=== PATIENT | male | born 1945 | race Caucasian/White ===

== ENCOUNTER 2017-01-14 06:49 | Day surgery (SDC) | payer MEDICARE ==
--- NOTE | ~2017-01-14 | EGD ---
EGD REPORT [facility] [address] [place] [address] NAME: VENTURA MARR : [birth year] STATUS : REG [facility] PAT#: [id number] AGE: 71 ADM/REG DATE : 01/14/17 MR#: [id number] REPORT SERV DATE: 01/14/17 DICTATED BY: CARTER SILVA DATE: 01/14/17 REPORT STATUS : Draft TRANSCRIBED BY: [employer] DATE: 01/14/17 [facility] Center Patient Name: Ventura Marr Date of : 1945 Attending MD: CARTER SILVA MD Procedure Date No Time: 01/14/2017 Procedure: Colonoscopy Indications: Screening for colorectal malignant neoplasm Referring MD: JUANA ADAMES Medicines: as per anesthesia Complications: No immediate complications. Procedure: Pre-Anesthesia Assessment: - ASA Grade Assessment: II - A patient with mild systemic disease. After I obtained informed consent, the scope was passed under direct vision. Throughout the procedure, the patient's blood pressure, pulse, and oxygen saturations were monitored continuously. The PCF [id number] was introduced through the anus and advanced to the cecum, identified by appendiceal orifice and ileocecal valve. The colonoscopy was performed without difficulty. The patient tolerated the procedure. The quality of the bowel preparation was adequate to identify polyps. Findings: The perianal and digital rectal examinations were normal. A few small and large-mouthed diverticula were found in the sigmoid colon, in the descending colon and in the transverse colon. Internal hemorrhoids were found during endoscopy and were mild. Impression: - Diverticulosis in the sigmoid colon, in the descending colon and in the transverse colon. - Internal hemorrhoids. Recommendation: - Repeat colonoscopy in 10 years for surveillance. Procedure Code(s): --- Professional --- 01767, Colonoscopy, flexible, proximal to splenic flexure; diagnostic, with or without collection of specimen(s) by brushing or washing, with or without colon decompression (separate procedure) Diagnosis Code(s): --- Professional --- K64.8, Other hemorrhoids K57.30, Diverticulosis of large intestine without EGD [address] [place] [address] NAME: VENTURA MARR : [birth year] STATUS : REG [facility] PAT#: [id number] AGE: 71 ADM/REG DATE : 01/14/17 MR#: [id number] REPORT SERV DATE: 01/14/17 DICTATED BY: CARTER SILVA. DATE: 01/14/17 REPORT STATUS : Draft TRANSCRIBED BY: [employer] DATE: 01/14/17 perforation or abscess without bleeding Z12.11, Encounter for screening for malignant neoplasm of colon CPT copyright 2013 [employer]. All rights reserved. The codes documented in this report are preliminary and upon lean specialist review may be revised to meet current compliance requirements. CARTER SILVA MD 01/14/2017 8:19 AM This report has been signed electronically. Number of Addenda: 0 Note Initiated On: 01/14/2017 6:57 AM Scope Withdrawal Time 0 hours 7 minutes 32 seconds [id number] [id number]
[~2017-01-14 06:49] MED LIST: MULTIPLE VIT PO; PRAVAC PO; PRILOSEC40 MG PO; SYNTHROID175 MCG PO
== END 2017-01-14 23:59 | disposition home or self-care (01) ==
LOC: DMU 06:49
PROVIDERS: Internal Medicine Gastroenterology
PROC: 0DJD8ZZ Inspection of Lower Intestinal Tract, Via Natural or Artificial Opening Endoscopic (ICD-10-PCS; principal; 2017-01-14 08:00)
DX: Z12.11 Encounter for screening for malignant neoplasm of colon (principal); K64.8 Other hemorrhoids; K57.30 Diverticulosis of large intestine without perforation or abscess without bleeding; E78.00 Pure hypercholesterolemia, unspecified; E03.9 Hypothyroidism, unspecified; K21.9 Gastro-esophageal reflux disease without esophagitis; K57.92 Diverticulitis of intestine, part unspecified, without perforation or abscess without bleeding; Z90.49 Acquired absence of other specified parts of digestive tract; Z88.2 Allergy status to sulfonamides; Z88.8 Allergy status to other drugs, medicaments and biological substances; Z88.5 Allergy status to narcotic agent